=== PATIENT | female | born 1940 | race American Indian/Alaskan Native ===

== ENCOUNTER 2017-01-22 19:16 | Inpatient (IN) | payer MEDICARE, MEDICAID ==
[2017-01-22 19:16] VITALS: BMI 35.5
--- NOTE | 2017-01-22 21:08 | C.PDOC ---
History Of Present Illness The patient, a 76 y/o female whose PMHx includes Breast CA and is currently on chemotherapy (last session was 5 days ago), presents to the ED for evaluation of severe weakness which began around 1 week ago. Patient notes she has been unable to walk for the past 2-3 days. She reports sever pain to her lower back region. She denies fever, chills, abdominal pain, nausea, vomiting. Chief Complaint (Nursing): Weakness/Neurological Deficit History Per: Patient History/Exam Limitations: no limitations Onset/Duration Of Symptoms: Other (around 1 week ) Current Symptoms Are (Timing): Still Present Associated Symptoms Preceding Syncopal Episode: No Predromal Symptoms (Sudden Onset) Seizure Or Post-ictal Symptoms: None Possible Causative Factor(s): Other (chemotherapy ) Fall Associated With With Symptoms: No Additional History Per: Patient Past Medical History Reviewed: Historical Data, Nursing Documentation, Vital Signs Vital Signs: Last Vital Signs Temp 97.9 F 01/22/17 19:23 Pulse 88 01/22/17 19:23 Resp 18 01/22/17 19:23 BP 142/76 01/22/17 21:53 Pulse Ox 98 01/22/17 21:28 - Medical History PMH: Anxiety, Arthritis (BILAT KNEES), Cardia Arrhythmia ("HEART PALPATIONS AT TIMES"), Colonic Polyps, Diabetes, Fractures (6YRS. AGO FX. RIGHT ANKLE-SURGERY DONE), HTN, Sleep Apnea (WEARS CPAP) Denies: Chronic Kidney Disease Surgical History: Tonsillectomy Denies: Pacemaker - [facility] Procedures C.A.T. SCAN OF THORAX (02/23/15) CLOSED [PERCUTANEOUS] [NEEDLE] BIOPSY OF LUNG (02/23/15) EXCISE AXILLARY NODE (09/30/13) LOCAL EXCIS BREAST LES (09/09/13) OTHER LOCAL DESTRUC SKIN (04/27/99) RESECTION OF RIGHT AXILLARY LYMPHATIC, OPEN APPROACH (06/03/15) RESECTION OF RIGHT BREAST, OPEN APPROACH (06/03/15) SUBTOTAL MASTECTOMY (09/30/13) Family History: States: Unknown Family Hx - Social History Hx Tobacco Use: No Hx Alcohol Use: No Hx Substance Use: No - Immunization History Hx Tetanus Toxoid Vaccination: No Hx Influenza Vaccination: No Hx Pneumococcal Vaccination: No Review Of Systems Except As Marked, All Systems Reviewed And Found Negative. Constitutional: Positive for: Weakness. Negative for: Fever, Chills Gastrointestinal: Negative for: Nausea, Vomiting, Abdominal Pain Musculoskeletal: Positive for: Back Pain (lower ) Physical Exam - Physical Exam Appears: Non-toxic, No Acute Distress Skin: Normal Color, Warm, Dry Head: Atraumatic, Normacephalic Eye(s): bilateral: Normal Inspection, PERRL, EOMI Ear(s): Bilateral: Normal Nose: Normal, No Discharge Oral Mucosa: Moist Throat: Normal, No Erythema, No Exudate Neck: Normal ROM, Supple Chest: Symmetrical, No Deformity, Tenderness (right breast region ) Cardiovascular: Rhythm Regular, No Murmur Respiratory: Normal Breath Sounds, No Rales, No Rhonchi, No Wheezing Gastrointestinal/Abdominal: Soft, No Tenderness, No Guarding, No Rebound Back: Normal Inspection, Vertebral Tenderness (lower back ), No Paraspinal Tenderness Extremity: Normal ROM, No Tenderness, No Calf Tenderness, Capillary Refill ( less than 2 seconds ), No Deformity, No Swelling Pulses: Left Dorsalis Pedis: Normal, Right Dorsalis Pedis: Normal Neurological/Psych: Oriented x3, Normal Speech, Normal Cognition, Other (no focal deficits ) Gait: Steady ED Course And Treatment - Laboratory Results Result Diagrams: 01/22/17 21:30 01/22/17 21:30 O2 Sat by Pulse Oximetry: 98 (on RA) Pulse Ox Interpretation: Normal Progress Note: labs, CT Chest, CT Lumbar Spine, EKG ordered and reviewed. Pt received Morphine IV and IV Fluids. 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 I have reviewed the chart and agree that the record accurately reflects my personal performance of the history, physical exam, medical decision making, and the department course for this patient. I have also personally directed, reviewed, and agree with the discharge instructions and disposition.
[2017-01-22] MEDS ORDERED: Sodium Chloride 0.9% 1,000 ML IV ONE (21:10)
[2017-01-22 21:41] LABS: CHLORIDE 95 mmol/L (98-107)
[2017-01-22] MEDS ORDERED: Sodium Chloride 0.9% 1,000 ML ONE (21:41)
[2017-01-22 21:42] LABS: POTASSIUM 3.4 mmol/L (3.6-5.2); SODIUM 133 mmol/L (132-148)
[2017-01-22 21:44] LABS: AST/SGOT 19 U/L (14-36); BILIRUBIN,TOTAL 0.5 mg/dL (0.2-1.3); CARBON DIOXIDE 33 mmol/L (22-30); GFR AFRICAN-AMERICAN > 60
[2017-01-22 21:45] LABS: ALB/GLOB RATIO 1.2 (1.0-2.1); ALKALINE PHOSPHATASE 77 U/L (38-126); ALT/SGPT 26 U/L (9-52); BLOOD UREA NITROGEN 13 mg/dL (7-17); CALCIUM 8.2 mg/dl (8.6-10.4); GLUCOSE,RANDOM 222 mg/dL (65-105); TOTAL PROTEIN 5.3 g/dL (6.3-8.3)
[2017-01-22 21:47] LABS: BASO % 0.6 % (0.0-2.0); EOS % 0.8 % (0.0-4.0); HEMATOCRIT 34.3 % (34.0-47.0); LYMPH # 0.5 K/uL (1.0-4.3); LYMPH % 10.9 % (20.0-40.0); MEAN CORPUSCULAR HEMOGLOBIN 28.9 pg (27.0-31.0); MEAN CORPUSCULAR HGB CONC 33.6 g/dL (33.0-37.0); MEAN PLATELET VOLUME 8.3 fL (7.2-11.7); MONO # 0.4 K/uL (0.0-0.8); MONO % 7.3 % (0.0-10.0); NRBC % 0.1 % (0.0-2.0); RED CELL DISTRIBUTION WIDTH 15.1 % (11.5-14.5); WHITE BLOOD COUNT 4.9 K/uL (4.8-10.8)
[2017-01-22 22:12] LABS: INR 1.1
--- NOTE | 2017-01-22 23:33 | CT ---
EXAM: CT Chest Without Intravenous Contrast CLINICAL HISTORY: 76 years old, female; Pain; Chest pain; Type not specified; Additional info: Chest pain/ ca breast right TECHNIQUE: Axial computed tomography images of the chest without intravenous contrast. This CT exam was performed using one or more of the following dose reduction techniques: automated exposure control, adjustment of the mA and/or kV according to patient size, and/or use of iterative reconstruction technique. Coronal and sagittal reformatted images were created and reviewed. EXAM DATE/TIME: Exam ordered 01/22/2017 9:07 PM COMPARISON: No relevant prior studies available. 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 Lungs: There are multiple bilateral lung masses which are highly likely in this context to be metastatic. The right lung base series 4 image 88 shows a 19 mm parenchymal nodule, with an additional series 4 image 30, series 4 image 27, no some clustered small nodules in the right upper lobe and a sub-solid area in the right upper lobe which may represent unrelated chronic change or could be a focus of interstitial spread. The left lung contains multiple masses and numerous nodules, with the largest findings in the left lower lobe of approximately 4 cm, lingula approximately 3.7 cm, and left upper lobe 2.3 cm, as well as multiple subpleural nodules and jn-fissural nodules, one of which series 4 image 37 along the left major fissure has an associated parenchymal area of possible adjacent interstitial spread. Pleural space: There are small bilateral pleural effusions. No pneumothorax. Heart: Calcifications in keeping with coronary artery disease. Small pericardial effusion. Cardiomegaly. Thyroid: There is an enlarged heterogeneous left lobe of the thyroid with a hypoattenuating nodule with flex of calcium series 4 image 16, and the nodule appears to measure approximately 2 cm. Bones/joints: There is no definite evidence of underlying bony invasion noting that CT. is less sensitive than some other modalities for that evaluation. There are severe degenerative spine changes with no findings of compression fracture at this time. Incidentally noted severe degenerative changes of the bilateral shoulders. No dislocation. Soft tissues: There are multiple soft tissue masses extending from the right axilla to the midline right chest wall, see for example axial series 4 image 42 through 49. Although there are some small cystic components the majority of the tissue in this area appears solid. While some part of these findings may represent postoperative change, noting the appearance of multiple discrete though infiltrative nodular masses is strongly suspected that the majority of this tissue is neoplastic. There is overlying chest wall skin thickening, which may be related to neoplasia or to the previous radiation therapy. The right breast region is seen to be asymmetrically smaller and distorted with a appearance which may relate to prior therapy. Vasculature: See above. Lymph nodes: No pathologically enlarged mediastinal nodes are seen. Gallbladder and bile ducts: Included upper abdomen shows a small calcified stone in the biliary tree favored to be within the hepatic duct series 4 image 119 rather than the common bile duct or gallbladder. Included liver with series 4 image 90 small hypoattenuating findings which are nonspecific. Tubes, lines and devices: there is a Port-A-Cath which extends to the superior vena cava, please note the Port-A-Cath is adjacent to the soft tissue findings in the right chest wall sagittal im 95 IMPRESSION: High suspicion for extensive local spread of tumor in the right axilla and right breast. Additional skin and subcutaneous fat changes which may be at least partly chronic. Numerous bilateral lung nodules/masses which are highly suspicious for metastatic disease. Part solid thyroid nodule with calcification as above. Small bilateral effusions. No obvious bone metastases noting that other modalities are more sensitive. Location of the Port-A-Cath as above, please correlate for desired position. The left breast region appears relatively clear within limits of CT.
--- NOTE | 2017-01-22 23:38 | CT ---
EXAM: CT Lumbar Spine Without Intravenous Contrast CLINICAL HISTORY: 76 years old, female; Injury or trauma; Fall; Initial encounter; Sprain or strain, lumbar ligaments; Additional info: Back pain/ca of breast TECHNIQUE: Axial computed tomography images of the lumbar spine without intravenous contrast. This CT exam was performed using one or more of the following dose reduction techniques: automated exposure control, adjustment of the mA and/or kV according to patient size, and/or use of iterative reconstruction technique. Coronal and sagittal reformatted images were created and reviewed. EXAM DATE/TIME: Exam ordered 01/22/2017 9:09 PM COMPARISON: No relevant prior studies available. FINDINGS: Vertebrae: There is sclerotic bordered abnormality at the bilateral sacroiliac joints which is related to sacroiliitis on a chronic basis and does not appear metastatic in origin. Vertebral heights are maintained, disc spaces are maintained for age although noting vacuum phenomenon at multiple levels. Severe degenerative facet changes are most prominent at L4-L5 and L5-S1. There is grade one anterolisthesis at L4-L5. Diffuse osteopenia. No acute fracture. Sacrum/coccyx: The sacrum does not appear fractured. Discs/spinal canal/neural foramina: There are severe degenerative changes at L5-S1. Disc bulges are seen at multiple levels, with no level of the lumbar spine completely spared. Findings are most severe at L5-S1 where together with ligamentum flavum hypertrophy there is central and possible foraminal impingement. Series 3 image 54, narrowing of the central canal and foramina at L4-L5. Soft tissues: No previous similar examinations available for comparison, patient with metastatic breast cancer. Vasculature: Included viscera of note for question thickening of the medial limb of the left adrenal gland, atherosclerotic calcifications. IMPRESSION: Within limits of this study , no fractures of the lumbar spine. Degenerative changes. Please note that other modalities may be more sensitive for malignant involvement than noncontrast CT.
[2017-01-23] MEDS: Sodium Chloride 0.45% 1,000 ML IV SCH (01:35)
--- NOTE | 2017-01-23 07:44 | HP ---
I know the patient very well for many years. Has been dealing with breast cancer and probably lung cancer metastasis for a while now. She is a 76-year- old female who came in with weakness, she was on the ground, could not get up. The family finally came in. She needed help to stand. They got her to the Emergency Room. PAST MEDICAL HISTORY: She has a past medical history of breast cancer, on chemotherapy. Last chemo was 5-6 days ago. She is unable to walk for the past 2-3 days. She has severe pain in the low back. Otherwise, before that she was getting around with a rollator. She has a history of breast cancer, on chemotherapy; anxiety; arthritis, bilateral knees; cardiac arrhythmia, heart palpitations colonic polyps, diabetes. She had a fractured right ankle it appears in the past. She has hypertension; sleep apnea, she wears CPAP; chronic kidney disease. She had a tonsillectomy. She has had CAT scans, needle biopsies, excisional axillary nodes, breast lesions, skin issues, right breast subtotal mastectomy. FAMILY HISTORY: There is hypertension in the family. SOCIAL HISTORY: No smoking, no drinking, no drugs. REVIEW OF SYSTEMS: No acute vision changes, no acute hearing changes, no sore throat, no headache, no dizziness, no chest pain, no shortness of breath; no nausea or vomiting, constipation, diarrhea or abdominal pain. There is lower back pain and very weak legs; she cannot stand or put weight on her in the legs at this time. PHYSICAL EXAMINATION: VITAL SIGNS: She has a 99.3 temp, 99.4 temps, low grade; 91 pulse; 125/77 blood pressure, 150/89 blood pressure; 20 respiratory rate, 98% O2 sat on room air. HEENT: Head is atraumatic, normocephalic. Extraocular muscles are intact. Throat is moist. GENERAL: She is alert and oriented x 3. She is fairly comfortable at this time. HEART: Regular rate. LUNGS: Decreased breath sounds bilaterally. Poor inspiration. No rales, rhonchi or wheezing. ABDOMEN: Soft, nontender, positive bowel sounds. No guarding, no rebound, no CVA tenderness. She is morbidly obese. EXTREMITIES: Trace edema. Fair range of motion. She is weak. She tells me she cannot stand or put weight on her legs. NEUROLOGIC: Alert and oriented x 3. Speech is normal. Normal cognition. LYMPHATICS: Thyroid midline. No palpable lymphadenopathy appreciated. LABORATORY DATA: On blood tests, she has a 133 sodium, potassium 3.4 (replace potassium), BUN 13, creatinine 0.5, GFR is greater than 60, sugar is 222 (I put her on insulin coverage), calcium is 8.2. AST is 19, ALT is 26, alk phos 77, total protein is 5.3. INR is 1.1. 4.9 is the white count, 11.5 is the hemoglobin, and 160 platelets. She has a lumbar spine CAT scan which showed limited study, no fracture of the lumbar spine, degenerative changes; does not see metastasis. She also had a chest CT which showed high suspicion for extension, local spread of tumor in the right axilla and right breast, numerous bilateral lung nodules/masses which are highly suspicious for metastatic disease, thyroid nodule, small bilateral effusions. No obvious bony metastasis. She has a Port-A-Cath in place. Her left breast is clear. She is also very weak. She will need physical therapy. She was supposed to go to [place] this ; I do not think she is going to make that. She might need to go to subacute rehab first and then to [place]. She will have a consult with Dr. Mariee for hematology/oncologist. Will call on pulmonary. Give her some morphine sulfate, Lovenox, thyroid, put her back on her medication , check her labs; and maybe in 3 days will get her to [facility] for physical therapy before she can go down to [place]. Continue aggressive treatment and care with oncology, IV fluids. She is here for inability to walk, breast cancer with lung metastasis, weakness , unsafe to go home in his situation, high fall risk. Sharif Nunez DO cc: [id number] TT: 01/23/2017 07:43:35 genna GONZALEZ
[2017-01-23] MEDS: (Novolin R) Insulin Human Regular 100 units/ml vial SC SCH ×4 (07:48→21:52)
--- NOTE | 2017-01-23 08:10 | CON ---
DATE: 01/23/2017 This is a 76-year-old woman who I am following. She has 2 cancers. 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 When she received chemotherapy with Cytoxan about a year and a half ago, this tumor went away. Her second problem is the right breast cancer. This is a very aggressive breast cancer. It is ER/LA negative, HER negative, a triple negative and v casandra aggressive. She has received a mastectomy, she received radiation therapy to the right breast ar ea, and she also received chemotherapy with [facility] followed by Taxotere, and most recently she was put o n [place] chemotherapy weekly for the last 3 weeks. These tumors are growing in her chest wall and i n her lung. The tumor in her chest wall was biopsied again about a year ago to prove that it was not the lymphoma but the breast cancer, and so she has progressive cancer, both locally in her chest wal l despite the surgery, radiation therapy and chemotherapy, and metastatic to the lungs. She is now a dmitted for generalized weakness and some lumbar pain. The CAT scan of the lumbar spine shows no met astases there and it is mostly degenerative changes with pain compounded by her weakness from the omega motherapy and the progressive cancer. I spoke with the daughter about a week or 2 ago and I explaine d that she does have progressive cancer. We have had many discussions that this is not curable and t hat the cancer continues to grow. They were making plans to have her go to [place] and be seen and g et further treatment in [place] in another week or 2, but now she is admitted for pain control. So a t this point, she has progressive cancer, but the pain in the lumbar spine is mostly arthritis and co mpounded by generalized weakness. We will see how she does with her pain medications. Kong Mariee MD cc: [id number] TT: 01/23/2017 08:09:30 Confirmation # [id number] Dictation # [id number] mn
[2017-01-23 08:35] LABS: RBC URINE 7 /hpf (0-3); URINE BACTERIA RARE (<OCC); URINE BILIRUBIN NEGATIVE (NEGATIVE); URINE BLOOD NEGATIVE (NEGATIVE); URINE CALCIUM OXALATE CRYSTALS OCC /hpf (<OCC); URINE COLOR Yellow (YELLOW); URINE GLUCOSE (UA) 1+ mg/dL (Normal); URINE KETONE NEGATIVE (NEGATIVE); URINE LEUKOCYTE ESTERASE 1+ Leu/uL (Negative); URINE PROTEIN NEGATIVE (NEGATIVE); URINE UROBILINOGEN NORMAL mg/dL (0.2-1.0); WBC URINE 20 /hpf (0-5)
[2017-01-23 08:38] VITALS: RESP 20
--- NOTE | 2017-01-23 11:49 | CARD ---
APPROVED REPORT EKG Measurement Heart [id number] [place] 82P4 [id number] <Conclusion> Sinus rhythm with short [place] Right bundle branch block Left anterior fascicular block Bifascicular block Minimal voltage criteria for LVH, may be normal variant Abnormal ECG
[2017-01-23] MEDS: Potassium Chloride 20 mEq ER Tab PO SCH (13:50)
[2017-01-23] MEDS: Metoprolol Succinate 25 mg XL Tab PO SCH (13:50)
[2017-01-23] MEDS: GlipiZIDE 2.5 mg SR Tab PO SCH (13:52)
[2017-01-23] MEDS: Enoxaparin 40 mg Syringe SC SCH (13:55)
[2017-01-24] MEDS: Sodium Chloride 0.45% 1,000 ML IV SCH (00:51)
--- NOTE | 2017-01-24 08:04 | PN ---
DATE: 01/24/2017 I see her resting in bed. She slept well last night. She is still very weak, lots of pain in her legs and low back. The CAT scan showed no bone metastasis. She is on morphine for the pain which is helping her. She is on IV fluids and her regular medications. I will get physical therapy to come in, let me know what they recommend. I cannot see her going to [place] at this time unless she physical therapy . I am hoping to get her to [facility] for subacute rehab first before she can go home and then go to [place]. PHYSICAL EXAMINATION: VITAL SIGNS: She has a 98.4 temp, 96 pulse, 150/76 blood pressure, 20 respiratory rate, % O2 sat on room air. She has aggressive breast cancer, not curable as per oncology. BREASTS: She has a suture left in her breast where they did surgery. We will get surgery to come in and remove it. MEDICATIONS: She is currently on Cozaar, Ecotrin, Lipitor, potassium, Lasix, Lexapro, Lovenox, Microzide, morphine, IV fluids, Toprol, Xanax. LABORATORY DATA: Labs from this morning are not back yet. Last blood sugar was 151. There is a consult for pulmonary, surgery and oncology. I believe she needs to go to subacute rehab before she can go home. She is too weak. I will call pain management in. She might need to be on fentanyl patches instead of morphine when she leaves her. The patient is here for severe back pain secondary to cancer, also debility with cannot walk and will need subacute rehab before she can go home. It is unsafe for her to go home, high fall risk. She has extended breast cancer which is aggressive. Sharif Nunez DO cc: [id number] TT: 01/24/2017 08:03:12 Confirmation # [id number] Dictation # [id number] philip GONZALEZ
[2017-01-24 08:09] LABS: HEMATOCRIT 30.9 % (34.0-47.0); MEAN CELL VOLUME 85.1 fL (81.0-99.0); MEAN CORPUSCULAR HEMOGLOBIN 29.6 pg (27.0-31.0); MEAN CORPUSCULAR HGB CONC 34.8 g/dL (33.0-37.0); MEAN PLATELET VOLUME 8.5 fL (7.2-11.7); RED CELL DISTRIBUTION WIDTH 14.9 % (11.5-14.5); WHITE BLOOD COUNT 4.3 K/uL (4.8-10.8)
[2017-01-24 08:53] LABS: CHLORIDE 96 mmol/L (98-107)
[2017-01-24 08:54] LABS: POTASSIUM 3.2 mmol/L (3.6-5.2); SODIUM 135 mmol/L (132-148)
[2017-01-24 08:56] LABS: ALKALINE PHOSPHATASE 75 U/L (38-126); ALT/SGPT 24 U/L (9-52); AST/SGOT 19 U/L (14-36); BILIRUBIN,TOTAL 0.7 mg/dL (0.2-1.3); BLOOD UREA NITROGEN 7 mg/dL (7-17); CARBON DIOXIDE 31 mmol/L (22-30); GFR AFRICAN-AMERICAN > 60; GLUCOSE,RANDOM 139 mg/dL (65-105); TOTAL PROTEIN 5.1 g/dL (6.3-8.3)
[2017-01-24 08:57] LABS: CALCIUM 7.6 mg/dl (8.6-10.4)
[2017-01-24] MEDS: Metoprolol Succinate 25 mg XL Tab PO SCH (10:17)
[2017-01-24] MEDS: (Novolin R) Insulin Human Regular 100 units/ml vial SC SCH ×3 (10:18→17:36)
[2017-01-24] MEDS: Enoxaparin 40 mg Syringe SC SCH (10:31)
[2017-01-24] MEDS: GlipiZIDE 2.5 mg SR Tab PO SCH (10:35)
[2017-01-24 11:01] LABS: THYROID STIMULATING HORMONE 0.41 mIU/L (0.46-4.68)
[2017-01-24] MEDS: Potassium Chloride 20 mEq ER Tab PO SCH (13:12)
--- NOTE | 2017-01-24 15:11 | CP.PCM.CON ---
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 small pleural effusions no respiratory distress h/o lymphoma Review of Systems - Constitutional Constitutional: Lethargy - Musculoskeletal Musculoskeletal: Back Pain, Muscle Weakness Past Patient History - Past Medical History & Family History Past Medical History?: Yes - Past Social History Smoking Status: Never Smoked - CARDIAC Hx Cardiac Disorders: Yes Hx Hypertension: Yes - PULMONARY Hx Respiratory Disorders: Yes Hx Sleep Apnea: Yes (WEARS CPAP) - NEUROLOGICAL Hx Neurological Disorder: No Hx Paralysis: No - HEENT Hx HEENT Problems: No - RENAL Hx Chronic Kidney Disease: No - ENDOCRINE/METABOLIC Hx Diabetes Mellitus Type 2: Yes - HEMATOLOGICAL/ONCOLOGICAL Hx Blood Disorders: No Hx Blood Transfusions: No - INTEGUMENTARY Hx Dermatological Problems: No - MUSCULOSKELETAL/RHEUMATOLOGICAL Hx Arthritis: Yes (BILAT KNEES L>R; SH JT) - GASTROINTESTINAL Hx Gastrointestinal Disorders: Yes - GENITOURINARY/GYNECOLOGICAL Hx Genitourinary Disorders: No - PSYCHIATRIC Hx Substance Use: No - SURGICAL HISTORY Hx Surgeries: Yes Hx Tonsillectomy: Yes Hx Vascular Access Device: Yes (Right subclavian portacath) - ANESTHESIA Hx Anesthesia: Yes Hx Anesthesia Reactions: No Hx Malignant Hyperthermia: No Has any member of the family had a problem w/ anesthesia?: No Meds Allergies/Adverse Reactions: Allergies Allergy/AdvReac Type Severity Reaction Status Date / Time coconut Allergy Severe ITCHING,SWE Verified 08/17/16 09:50 LLING,HIVES lactose Allergy Severe GI DISTRESS Verified 08/17/16 09:50 Penicillins Allergy Severe HIVES,ITCHI Verified 08/17/16 09:50 NG NUTS Allergy Severe SWELLING,HI Uncoded 08/17/16 09:50 VES,ITCHING PALM SEED OIL Allergy Severe ITCHING,SWE Uncoded 08/17/16 09:50 LLING,HIVES seeds Allergy Intermediate RASH Uncoded 06/05/15 04:28 - Medications Medications: Current Medications Alprazolam (Xanax) 1 mg PO TID [facility] Last Admin: 01/24/17 13:32 Dose: Not Given Aspirin (Ecotrin) 81 mg PO DAILY [facility] Last Admin: 01/24/17 10:17 Dose: 81 mg Enoxaparin Sodium (Lovenox) 40 mg SC DAILY [facility] Last Admin: 01/24/17 10:31 Dose: 40 mg Escitalopram Oxalate (Lexapro) 5 mg PO DAILY [facility] Last Admin: 01/24/17 10:35 Dose: 5 mg Fentanyl (Duragesic) 1 patch TD Q72H [facility] Last Admin: 01/24/17 07:01 Dose: 1 patch Furosemide (Lasix) 40 mg PO DAILY [facility] Last Admin: 01/24/17 10:16 Dose: 40 mg Glipizide (Glucotrol Xl) 2.5 mg PO DAILY [facility] Last Admin: 01/24/17 10:35 Dose: 2.5 mg Hydrochlorothiazide (Microzide) 12.5 mg PO DAILY [facility] Last Admin: 01/24/17 10:17 Dose: 12.5 mg Sodium Chloride (Sodium Chloride 0.45%) 1,000 mls @ 40 mls/hr IV .Q24H [facility] Last Admin: 01/24/17 00:51 Dose: 40 mls/hr Insulin Human Regular (Novolin R) 0 unit SC ACHS [facility] PRN Reason: Protocol Last Admin: 01/24/17 13:05 Dose: 4 unit Losartan Potassium (Cozaar) 100 mg PO DAILY [facility] Last Admin: 01/24/17 10:17 Dose: 100 mg Metoprolol Succinate (Toprol Xl) 25 mg PO DAILY [facility] Last Admin: 01/24/17 10:17 Dose: 25 mg Morphine Sulfate (Morphine) 2 mg IVP Q4 PRN PRN Reason: Pain, moderate (4-7) Last Admin: 01/24/17 10:22 Dose: 2 mg Potassium Chloride (K-Dur 20 Meq Er Tab) 20 meq PO DAILY [facility] Last Admin: 01/24/17 13:12 Dose: 20 meq Physical Exam - Constitutional Appears: Chronically Ill - Head Exam Head Exam: ATRAUMATIC, NORMOCEPHALIC - Eye Exam Eye Exam: Normal appearance - ENT Exam ENT Exam: Mucous Membranes Moist - Neck Exam Neck exam: Positive for: Normal Inspection - Respiratory Exam Respiratory Exam: Decreased Breath Sounds - Cardiovascular Exam Cardiovascular Exam: +S1, +S2 - GI/Abdominal Exam GI & Abdominal Exam: Normal Bowel Sounds - Rectal Exam Rectal Exam: Deferred - Neurological Exam Neurological exam: Alert, Oriented x3 - Psychiatric Exam Psychiatric exam: Normal Affect, Normal Mood - Skin Skin Exam: Intact Results - Vital Signs Recent Vital Signs: Last Vital Signs Temp 98.4 F 01/24/17 08:22 Pulse 82 01/24/17 08:22 Resp 20 01/24/17 08:22 BP 130/70 01/24/17 10:16 Pulse Ox 97 01/24/17 08:22 - Labs Result Diagrams: 01/24/17 07:49 01/24/17 07:49 Labs: Laboratory Results - last 24 hr 01/23/17 01/23/17 01/23/17 11:19 16:47 21:19 WBC RBC Hgb Hct MCV MCH MCHC RDW Plt Count MPV Sodium Potassium Chloride Carbon Dioxide Anion Gap BUN Creatinine Est GFR ( Amer) Est GFR (Non-Af Amer) POC Glucose (mg/dL) 183 H 161 H 240 H Random Glucose Calcium Total Bilirubin AST ALT Alkaline Phosphatase Total Protein Albumin Globulin Albumin/Globulin Ratio TSH 3rd Generation 01/24/17 01/24/17 01/24/17 07:49 07:49 07:53 WBC 4.3 L RBC 3.63 L Hgb 10.8 L Hct 30.9 L MCV 85.1 MCH 29.6 MCHC 34.8 RDW 14.9 H Plt Count 160 MPV 8.5 Sodium 135 Potassium 3.2 L Chloride 96 L Carbon Dioxide 31 H Anion Gap 11 BUN 7 Creatinine 0.5 L Est GFR ( Amer) > 60 Est GFR (Non-Af Amer) > 60 POC Glucose (mg/dL) 151 H Random Glucose 139 H Calcium 7.6 L Total Bilirubin 0.7 AST 19 ALT 24 Alkaline Phosphatase 75 Total Protein 5.1 L Albumin 2.5 L Globulin 2.5 Albumin/Globulin Ratio 1.0 TSH 3rd Generation 0.41 L 01/24/17 11:19 WBC RBC Hgb Hct MCV MCH MCHC RDW Plt Count MPV Sodium Potassium Chloride Carbon Dioxide Anion Gap BUN Creatinine Est GFR ( Amer) Est GFR (Non-Af Amer) POC Glucose (mg/dL) 264 H Random Glucose Calcium Total Bilirubin AST ALT Alkaline Phosphatase Total Protein Albumin Globulin Albumin/Globulin Ratio TSH 3rd Generation Assessment & Plan (1) 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
[2017-01-24] MEDS: Albuterol-Ipratrop 3 mg / 0.5 (3 ml) UD INH SCH (22:42)
--- NOTE | 2017-01-25 00:13 | CP.PCM.CON ---
History of Present Illness - History of Present Illness History of Present Illness: SURGERY CONSULT NOTE FOR DR. HUNT 76F presents to [facility] for a fall. Patient states she felt her legs gave out on her a couple days ago and her daughter called for the ambulance. Surgery is consulted for removal of suture in the site of a breast operation. Patient states she had a right mastectomy done here at [facility] 3 years ago. She most recently had biopsy in the same region in August at [place]. She states that when she touches the surgical site she feels a hard material that feels like suture. She also complains of pain, firmness and warmth of the site that has been like this for a while. She denies any drainage from this area. PMH: HTN, DM PSH: orthopedic LLE operation Social: denies tobacco, alcohol, illicit drug use Allergies: coconut, lactose, penicillins Past Patient History - Past Medical History & Family History Past Medical History?: Yes - Past Social History Smoking Status: Never Smoked - CARDIAC Hx Cardiac Disorders: Yes Hx Hypertension: Yes - PULMONARY Hx Respiratory Disorders: Yes Hx Sleep Apnea: Yes (WEARS CPAP) - NEUROLOGICAL Hx Neurological Disorder: No Hx Paralysis: No - HEENT Hx HEENT Problems: No - RENAL Hx Chronic Kidney Disease: No - ENDOCRINE/METABOLIC Hx Diabetes Mellitus Type 2: Yes - HEMATOLOGICAL/ONCOLOGICAL Hx Blood Disorders: No Hx Blood Transfusions: No - INTEGUMENTARY Hx Dermatological Problems: No - MUSCULOSKELETAL/RHEUMATOLOGICAL Hx Arthritis: Yes (BILAT KNEES L>R; SH JT) - GASTROINTESTINAL Hx Gastrointestinal Disorders: Yes - GENITOURINARY/GYNECOLOGICAL Hx Genitourinary Disorders: No - PSYCHIATRIC Hx Substance Use: No - SURGICAL HISTORY Hx Surgeries: Yes Hx Tonsillectomy: Yes Hx Vascular Access Device: Yes (Right subclavian portacath) - ANESTHESIA Hx Anesthesia: Yes Hx Anesthesia Reactions: No Hx Malignant Hyperthermia: No Has any member of the family had a problem w/ anesthesia?: No Meds Allergies/Adverse Reactions: Allergies Allergy/AdvReac Type Severity Reaction Status Date / Time coconut Allergy Severe ITCHING,SWE Verified 08/17/16 09:50 LLING,HIVES lactose Allergy Severe GI DISTRESS Verified 08/17/16 09:50 Penicillins Allergy Severe HIVES,ITCHI Verified 08/17/16 09:50 NG NUTS Allergy Severe SWELLING,HI Uncoded 08/17/16 09:50 VES,ITCHING PALM SEED OIL Allergy Severe ITCHING,SWE Uncoded 08/17/16 09:50 LLING,HIVES seeds Allergy Intermediate RASH Uncoded 06/05/15 04:28 - Medications Medications: Current Medications Albuterol/Ipratropium (Duoneb 3 Mg/0.5 Mg (3 Ml) Ud) 3 ml INH RQ6 [facility] Last Admin: 01/24/17 22:42 Dose: Not Given Alprazolam (Xanax) 1 mg PO Q8 PRN PRN Reason: Anxiety Last Admin: 01/24/17 21:45 Dose: 1 mg Aspirin (Ecotrin) 81 mg PO DAILY [facility] Last Admin: 01/24/17 10:17 Dose: 81 mg Enoxaparin Sodium (Lovenox) 40 mg SC DAILY [facility] Last Admin: 01/24/17 10:31 Dose: 40 mg Escitalopram Oxalate (Lexapro) 5 mg PO DAILY [facility] Last Admin: 01/24/17 10:35 Dose: 5 mg Fentanyl (Duragesic) 1 patch TD Q72H [facility] Last Admin: 01/24/17 07:01 Dose: 1 patch Furosemide (Lasix) 40 mg PO DAILY [facility] Last Admin: 01/24/17 10:16 Dose: 40 mg Glipizide (Glucotrol Xl) 2.5 mg PO DAILY [facility] Last Admin: 01/24/17 10:35 Dose: 2.5 mg Hydrochlorothiazide (Microzide) 12.5 mg PO DAILY [facility] Last Admin: 01/24/17 10:17 Dose: 12.5 mg Sodium Chloride (Sodium Chloride 0.45%) 1,000 mls @ 40 mls/hr IV .Q24H [facility] Last Admin: 01/24/17 00:51 Dose: 40 mls/hr Insulin Human Regular (Novolin R) 0 unit SC ACHS [facility] PRN Reason: Protocol Last Admin: 01/24/17 17:36 Dose: Not Given Losartan Potassium (Cozaar) 100 mg PO DAILY [facility] Last Admin: 01/24/17 10:17 Dose: 100 mg Metoprolol Succinate (Toprol Xl) 25 mg PO DAILY [facility] Last Admin: 01/24/17 10:17 Dose: 25 mg Morphine Sulfate (Morphine) 2 mg IVP Q4 PRN PRN Reason: Pain, moderate (4-7) Last Admin: 01/24/17 10:22 Dose: 2 mg Potassium Chloride (K-Dur 20 Meq Er Tab) 20 meq PO DAILY [facility] Last Admin: 01/24/17 13:12 Dose: 20 meq Physical Exam - Constitutional Appears: Non-toxic, No Acute Distress - Head Exam Head Exam: ATRAUMATIC - Eye Exam Eye Exam: EOMI, PERRL - ENT Exam ENT Exam: Mucous Membranes Moist - Respiratory Exam Respiratory Exam: Clear to Auscultation Bilateral, NORMAL BREATHING PATTERN - Cardiovascular Exam Cardiovascular Exam: REGULAR RHYTHM, +S1, +S2 - GI/Abdominal Exam GI & Abdominal Exam: Soft. absent: Distended, Firm, Guarding, Rebound, Rigid, Tenderness - Extremities Exam Extremities exam: Negative for: pedal edema, tenderness - Neurological Exam Neurological exam: Alert, Oriented x3 - Psychiatric Exam Psychiatric exam: Normal Affect, Normal Mood - Skin Skin Exam: Dry, Intact, Normal Color, Warm Additional comments: right breast, site of operation, warm, tender and firm to touch along incision Results - Vital Signs Recent Vital Signs: Last Vital Signs Temp 98.3 F 01/24/17 23:48 Pulse 94 H 01/24/17 23:48 Resp 20 01/24/17 23:48 BP 133/79 01/24/17 23:48 Pulse Ox 96 01/24/17 23:48 - Labs Result Diagrams: 01/25/17 07:12 01/25/17 07:12 Labs: Laboratory Results - last 24 hr 01/24/17 01/24/17 01/24/17 07:49 07:49 07:53 WBC 4.3 L RBC 3.63 L Hgb 10.8 L Hct 30.9 L MCV 85.1 MCH 29.6 MCHC 34.8 RDW 14.9 H Plt Count 160 MPV 8.5 Sodium 135 Potassium 3.2 L Chloride 96 L Carbon Dioxide 31 H Anion Gap 11 BUN 7 Creatinine 0.5 L Est GFR ( Amer) > 60 Est GFR (Non-Af Amer) > 60 POC Glucose (mg/dL) 151 H Random Glucose 139 H Calcium 7.6 L Total Bilirubin 0.7 AST 19 ALT 24 Alkaline Phosphatase 75 Total Protein 5.1 L Albumin 2.5 L Globulin 2.5 Albumin/Globulin Ratio 1.0 TSH 3rd Generation 0.41 L 01/24/17 01/24/17 01/24/17 11:19 16:38 21:09 WBC RBC Hgb Hct MCV MCH MCHC RDW Plt Count MPV Sodium Potassium Chloride Carbon Dioxide Anion Gap BUN Creatinine Est GFR ( Amer) Est GFR (Non-Af Amer) POC Glucose (mg/dL) 264 H 129 H 192 H Random Glucose Calcium Total Bilirubin AST ALT Alkaline Phosphatase Total Protein Albumin Globulin Albumin/Globulin Ratio TSH 3rd Generation Assessment & Plan - Assessment and Plan (Free Text) Assessment: 76F with small suture at site of procedure and possible cellulitis of right breast region. Plan: - suture removed bedside - consider antibiotics for right breast infection Further recs discuss with Dr. Pineda Vera, PGY1
[2017-01-25] MEDS: Albuterol-Ipratrop 3 mg / 0.5 (3 ml) UD INH SCH ×4 (01:04→19:11)
[2017-01-25] MEDS: Sodium Chloride 0.45% 1,000 ML IV SCH (02:10)
[2017-01-25 07:20] LABS: HEMATOCRIT 31.7 % (34.0-47.0); MEAN CELL VOLUME 85.3 fL (81.0-99.0); MEAN CORPUSCULAR HEMOGLOBIN 29.2 pg (27.0-31.0); MEAN CORPUSCULAR HGB CONC 34.2 g/dL (33.0-37.0); MEAN PLATELET VOLUME 8.4 fL (7.2-11.7); WHITE BLOOD COUNT 3.9 K/uL (4.8-10.8)
[2017-01-25 07:54] LABS: CHLORIDE 96 mmol/L (98-107); POTASSIUM 3.2 mmol/L (3.6-5.2); SODIUM 136 mmol/L (132-148)
[2017-01-25 07:56] LABS: GFR AFRICAN-AMERICAN > 60
[2017-01-25 07:57] LABS: ALB/GLOB RATIO 1.1 (1.0-2.1); ALKALINE PHOSPHATASE 77 U/L (38-126); ALT/SGPT 25 U/L (9-52); AST/SGOT 22 U/L (14-36); BILIRUBIN,TOTAL 0.6 mg/dL (0.2-1.3); BLOOD UREA NITROGEN 9 mg/dL (7-17); CALCIUM 7.8 mg/dl (8.6-10.4); CARBON DIOXIDE 34 mmol/L (22-30); GLUCOSE,RANDOM 117 mg/dL (65-105); TOTAL PROTEIN 5.1 g/dL (6.3-8.3)
--- NOTE | 2017-01-25 08:49 | DS ---
I am trying to get her to [facility] subacute rehabilitation. She is doing well. She is comforta ble in bed. She is eating well. Pain is better with the fentanyl patch. I am stopping the morphine . PHYSICAL EXAMINATION: VITAL SIGNS: Temp 98.3, 94 pulse, 133/79 blood pressure, 20 respiratory rate, 96% O2 sat on room air . HEENT: Head is atraumatic, normocephalic. HEART: Regular rate. LUNGS: Decreased breath sounds, but clear. ABDOMEN: Soft, nontender. Positive bowel sounds. EXTREMITIES: Have no edema. She is currently on Cozaar, Doryx I added for the breast area which is mildly infected after taking t he suture out, DuoNeb, Duragesic patch, Ecotrin, Glucotrol, potassium replacement, Lasix, Lexapro, Lo venox, Microzide, Novolin, IV fluids, metoprolol and Xanax. PHYSICAL EXAMINATION: HEAD: Atraumatic, normocephalic. HEART: Regular rate. LUNGS: Clear to auscultation. ABDOMEN: Soft, obese, nontender. EXTREMITIES: No edema, but she is weak. She has a 4.3 white count, 10.8 hemoglobin, 160 platelets. Sodium 135, potassium 3.2, I am going to place her on potassium. Last blood sugar was 129, total bili is 0.7, AST is 19, ALT is 24, alk phos 75. She is being seen by pulmonology, hematology/oncology, surgery. She has a little pleural effusion. I do think she is improving. I put a discharge in to [facility]. Hopefully, we will get her ther e today or tomorrow as per case management. Continue with physical therapy. She needs adapted physical education aide apy before she goes home and hopefully this is a discharge summary, either today or tomorrow, I am no t sure. We will try and get her out in the next 24 hours to [facility]. She is here for debility, back pain, leg pain, inability to walk. She has a history of severe lung c ancer with metastasis. Sharif Nunez DO cc: [id number] TT: 01/25/2017 08:07:09 en
[2017-01-25] MEDS: (Novolin R) Insulin Human Regular 100 units/ml vial SC SCH ×5 (09:26→21:56)
--- NOTE | 2017-01-25 09:27 | CON ---
DATE: 01/24/2017 This is a 76-year-old woman with aggressive and progressive widely metastatic breast cancer. This is continuing to grow on her right chest wall, right axillary lymph nodes and into her lungs, and she c ontinues to feel very weak. She came in because she was so weak that she was unable to walk. Jenna irizarry, she always comes to my office now for the last 2 years, either with a walker or with a wheelchair as she is so weak in general. What happened recently is she just started getting even weaker, and I told her this is secondary to the cancer. She has no paresthesias down her legs. She has no numbnes s and she is able to move her ankles. She is able to bend her knees in bed. She says she has pain i n the thighs when she moves them, but overall it is a generalized weakness. I told her again that th is is all due to the cancer taking away her energy. She says she wishes that we could stop that, and I said that we have tried many times with many different kinds of chemotherapy. She was hoping to g o to [place]. I told her that there is no way she can go to [place], and that her 2 daughters are no t listening to what we are telling them - that the cancer is continuing to grow and we cannot cure it and that is why she is so weak. I agreed that she should go to rehab, see if she can get some physi lacy therapy there, but I told her that basically the cancer was taking with her energy and preventing her from improving. But for now, we will hold off on chemotherapy and send her to rehab. Kong Mariee MD cc: [phone] TT: 01/24/2017 09:21:40 Confirmation # [id number] Dictation # [id number] genna
[2017-01-25] MEDS: Enoxaparin 40 mg Syringe SC SCH (09:28)
[2017-01-25] MEDS: Metoprolol Succinate 25 mg XL Tab PO SCH (09:29)
[2017-01-25] MEDS: Potassium Chloride 20 mEq ER Tab PO SCH (09:29)
[2017-01-25] MEDS: GlipiZIDE 2.5 mg SR Tab PO SCH (09:36)
[2017-01-25] MEDS ORDERED: Morphine 4 MG/ML VIAL IV PRN (16:27)
[2017-01-25] MEDS ORDERED: Potassium Chloride 20 mEq ER Tab PO ONE (18:00)
[2017-01-26] MEDS: Sodium Chloride 0.45% 1,000 ML IV SCH (00:15)
[2017-01-26] MEDS: Albuterol-Ipratrop 3 mg / 0.5 (3 ml) UD INH SCH ×3 (01:37→13:22)
[2017-01-26 08:16] VITALS: PULSE 70; TEMP 98.9; O2SAT 100
[2017-01-26] MEDS: (Novolin R) Insulin Human Regular 100 units/ml vial SC SCH ×2 (08:46→12:22)
[2017-01-26] MEDS: Metoprolol Succinate 25 mg XL Tab PO SCH (10:19)
[2017-01-26] MEDS: Potassium Chloride 20 mEq ER Tab PO SCH (10:19)
[2017-01-26] MEDS: GlipiZIDE 2.5 mg SR Tab PO SCH (10:20)
[2017-01-26] MEDS: Enoxaparin 40 mg Syringe SC SCH (10:20)
[2017-01-26 10:21] VITALS: BP 130/70
--- NOTE | 2017-01-26 12:12 | DS ---
The patient is going to go to [facility] today for subacute rehabilitation. I think it is going to help her and she will do very well there. She is very happy about going there and she said she needs physical therapy. OBJECTIVE: VITAL SIGNS: 98.2 temp, 96 pulse, 134/83 blood pressure, 20 respiratory rate, % O2 sat on room air. HEENT: Head is atraumatic, normocephalic. HEART: Regular rate. LUNGS: Clear to auscultation. ABDOMEN: Soft, obese. EXTREMITIES: Weak, starting to move them a little bit better. She is going to go on Cozaar, Doryx p.o., DuoNeb, Fentanyl patch 25, Ecotrin, Glucotrol, potassium, Lasix, Lexapro, Lovenox, Microzide stopped the morphine, stopped IV fluids, Toprol and Xanax. LABORATORY DATA: She has a 3.9 white count, 10.8 hemoglobin, 31.7 hematocrit with 178 platelets. Sodium 136, potassium was 3.2 yesterday, we replaced it. BUN 9, creatinine 0.6, GFR is greater than 60, sugar is 117, calcium 7.8, total bili is 0.68, AST is 22, ALT is 25, alkaline phosphatase 77, total protein 5.1. She was seen by surgery, pulmonary, hematology/oncology. She is going to go there for physical therapy before she goes to [place], hopefully 2 or 3 weeks. She is going to rehab and then chemo and then [place] plan. She has weakness. She had a fall, debility, cannot walk, she has breast cancer with metastasis. Sharif Nunez DO cc: [id number] TT: 01/26/2017 12:11:35 malini GONZALEZ
== END 2017-01-26 15:49 | DRG 598 ==
LOC: C.ER 19:16 → C.9E 01-23 00:05 → C.3T 01-23 00:30
PROVIDERS: ADMIT Family Medicine; ATTEND Family Medicine
DX: C50.811 Malignant neoplasm of overlapping sites of right female breast (principal); C77.3 Secondary and unspecified malignant neoplasm of axilla and upper limb lymph nodes; C78.01 Secondary malignant neoplasm of right lung; C78.02 Secondary malignant neoplasm of left lung; M47.817 Spondylosis without myelopathy or radiculopathy, lumbosacral region; I12.9 Hypertensive chronic kidney disease with stage 1 through stage 4 chronic kidney disease, or unspecified chronic kidney disease; N18.9 Chronic kidney disease, unspecified; E11.22 Type 2 diabetes mellitus with diabetic chronic kidney disease; N61.0 Mastitis without abscess; Z85.72 Personal history of non-Hodgkin lymphomas; Z17.1 Estrogen receptor negative status [ER-]; Z48.02 Encounter for removal of sutures